=== PATIENT | male | born 1960 | race Caucasian/White ===

== ENCOUNTER 2017-08-02 13:46 | Emergency (ER) | payer BC, SELFPAY ==
[2017-08-02 13:47] VITALS: BP 162/79; PULSE 89; RESP 18; TEMP 36.9; O2SAT 95; BMI 35.1
--- NOTE | 2017-08-02 13:50 | XR_ITS ---
XR chest 2V Ordering Physician: Cale De La Torre MD Patient Age: 56 years: Male HISTORY: ITS.REASON: chest pain TECHNIQUE: PA and lateral chest. FINDINGS The lungs otherwise fairly clear with nothing definitely acute. No focal pneumonia. Diaphragms down to the anterior fifth rib bilateral. The heart, brennon and mediastinal structures satisfactory. Chest wall and T-spine satisfactory with no significant findings. No previous studies available for comparison. IMPRESSION: Lungs clear nothing definitely acute
[2017-08-02 14:21] LABS: Basophils % 0.3 % (0.1-2.0); Eosinophils # 0.4 K/mm3 (0.0-0.4); Eosinophils % 3.2 % (0.1-12.0); Hematocrit 46.7 % (42.0-52.0); Hemoglobin 15.3 g/dL (14.1-18.0); Lymphocytes # 3.5 K/mm3 (0.7-4.5); Lymphocytes % 29.8 K/mm3 (10-50); Mean Corpuscular HGB Conc 32.8 g/dL (31.8-35.4); Mean Corpuscular Hemoglobin 30.2 pg (27.0-31.2); Mean Corpuscular Volume 92.1 fl (80-94); Mean Platelet Volume 8.8 fl (7.4-10.4); Monocytes # 0.6 K/mm3 (0.1-1.0); Monocytes % 4.8 % (1.7-9.3); Neutrophils # 7.3 K/mm3 (1.8-7.8); Neutrophils % 61.9 % (37.0-80.0); Platelet Count 269 K/mm3 (142-424); Red Blood Count 5.07 M/mm3 (4.60-6.20); Red Cell Distribution Width 13.8 % (11.5-17.5); White Blood Count 11.8 K/mm3 (4.8-10.8)
[2017-08-02 14:46] LABS: Alanine Aminotransferase 117 U/L (12-78); Albumin/Globulin Ratio 1.3 (1.1-1.8); Alkaline Phosphatase 117 U/L (46-116); Anion Gap 11.1 mEq/L (5-15); Aspartate Amino Transferase 56 U/L (15-37); Bilirubin,Total 0.2 mg/dL (0.2-1.0); Blood Urea Nitrogen 17 mg/dL (7-18); CKMB Relative Index 0.7 U/L (0-4.0); Calcium 9.3 mg/dL (8.5-10.1); Carbon Dioxide 29 mmol/L (21.0-32.0); Chloride 104 mmol/L (98-107); Creatine Kinase 144 U/L (39-308); Creatinine Clearance Estimated 107 mL/min (0-300); Creatinine,Serum 1.03 mg/dL (0.70-1.30); Estimated Glomerular Filt Rate 74 ml/min (>60); GFR (African American) 90 ML/MIN (>60); Glucose 121 mg/dL (74-106); Potassium 4.1 mmoL/L (3.5-5.1); Sodium 140 mmol/L (136-145); Troponin I < 0.02 ng/ml (0.00-0.06)
[2017-08-02 15:53] VITALS: BP 161/98; PULSE 79; RESP 18; O2SAT 97
[2017-08-02 16:30] VITALS: BP 182/97; PULSE 82; RESP 18; O2SAT 97
[2017-08-02 16:38] LABS: CKMB Relative Index 0.6 U/L (0-4.0); Creatine Kinase 135 U/L (39-308); Creatine Kinase MB 0.8 mg/ml (0.0-3.6); Troponin I < 0.02 ng/ml (0.00-0.06)
--- NOTE | 2017-08-02 17:13 | HMH.EDCP ---
ED Disposition Clinical Impression: Atypical chest pain Disposition: Home, Self-Care Condition on Discharge: Good Instructions: DI for Atypical Chest Pain Additional Instructions: Please follow-up with Dr. Ame Veloz, within the next 2 days call for additional outpatient workup. Referrals: Ame Veloz [Referring] - Time of Disposition: 17:13 - Critical Care Critical Care Time: No Attestation: On 08/02/17, the high probability of a clinically significant, sudden or life threatening deterioration of the following system(s) required my full and direct attention, intervention and personal management. The time I documented below is in addition to time spent performing reported procedures but includes the following listed in this critical care notation. Medical Decision Making - Medical Records Medical records reviewed: Yes: I reviewed the patient's medical records. Vital Signs: 08/02/17 13:47 08/02/17 15:53 08/02/17 16:30 Temperature 98.5 F Temperature Source Oral Pulse Rate Pulse Rate [Right Brachial] 89 79 82 Respiratory Rate 18 18 18 Blood Pressure Blood Pressure [Right Arm] 162/79 161/98 182/97 Blood Pressure Mean [Right Arm] 106 119 125 Blood Pressure Source Blood Pressure Source [Right Arm] Automatic Cuff Automatic Cuff Automatic Cuff Blood Pressure Position Blood Pressure Position [Right Arm] Sitting Sitting Sitting 02 Sat by Pulse Oximetry 95 97 97 Oxygen Delivery Method Room Air Room Air Room Air 08/02/17 17:24 Temperature Temperature Source Pulse Rate 88 Pulse Rate [Right Brachial] Respiratory Rate 18 Blood Pressure 151/99 Blood Pressure [Right Arm] Blood Pressure Mean [Right Arm] Blood Pressure Source Automatic Cuff Blood Pressure Source [Right Arm] Blood Pressure Position Sitting Blood Pressure Position [Right Arm] 02 Sat by Pulse Oximetry Oxygen Delivery Method Room Air - Lab Data Lab results reviewed: Yes: I reviewed the patient's lab results. Lab Results 08/02/17 14:05: WBC 11.8 H, RBC 5.07, Hgb 15.3, Hct 46.7, MCV 92.1, MCH 30.2, MCHC 32.8, RDW 13.8, Plt Count 269, MPV 8.8, Neut % (Auto) 61.9, Lymph % (Auto) 29.8, [place] % (Auto) 4.8, Eos % (Auto) 3.2, Baso % (Auto) 0.3, Neut # (Auto) 7.3, Lymph # (Auto) 3.5, [place] # (Auto) 0.6, Eos # (Auto) 0.4, Baso # (Auto) 0.0 08/02/17 14:05: Sodium 140, Potassium 4.1, Chloride 104, Carbon Dioxide 29, Anion Gap 11.1, BUN 17, Creatinine 1.03, Estimated Creat Clear 107, Estimated GFR 74, Est GFR ( Amer) 90, Glucose 121 H, Calcium 9.3, Total Bilirubin 0.2, AST 56 H, ALT 117 H, Alkaline Phosphatase 117 H, Total Creatine Kinase 144, CK-MB (CK-2) 1.0, CK-MB (CK-2) Rel Index 0.7, Troponin I < 0.02, Total Protein 7.0, Albumin 4.0, Globulin 3.0, Albumin/Globulin Ratio 1.3 08/02/17 16:06: Total Creatine Kinase 135, CK-MB (CK-2) 0.8, CK-MB (CK-2) Rel Index 0.6, Troponin I < 0.02 Result diagrams: 08/02/17 14:05 08/02/17 14:05 Orders (Tests/Meds): ED MEDICATIONS Discontinued Medications Generic Name Dose Route Start Last Admin Trade Name Freq PRN Reason Stop Dose Admin Aspirin 324 mg 08/02/17 13:51 08/02/17 15:51 Aspirin 81mg Chewable Tablet PO 08/02/17 13:52 324 mg ONCE ONE Administration - Radiology Data #1 Image(s): Chest Image Reviewed: Yes I reviewed the patient's radiology results, Yes I reviewed the patient's radiology image, Yes I discussed the image results w/the radiologist Preliminary Findings: Normal/NAD - ECG Data Tracing #1 I reviewed this ECG and interpreted as documented below: no acute disease, no acute ischemia ECG normal with no acute: arrhythmias, ischemia, conduction abnormalities, chamber hypertrophy - Tung Inquiry Pt receiving controlled substance: No - Reevaluation(s) Time: 16:58 Reevaluation #1: in no acute distress, no recurrent symptoms, 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
[2017-08-02 17:24] VITALS: BP 151/99; PULSE 88; RESP 18; O2SAT 99
== END 2017-08-02 17:25 | disposition home or self-care (01) ==
PROVIDERS: Emergency Provider Emergency Medicine; Family Provider Physician Assistant; PCP Physician Assistant
DX: R07.89 Other chest pain (principal)
CPT/HCPCS: 36415; 71046; 80053; 82550; 82553; 84484; 85025; 93005; 93041; 99284

== ENCOUNTER 2020-04-04 07:00 | Outpatient (RCR) | payer OTHER, SELFPAY | END 2020-04-04 09:00 | disposition home or self-care (01) | LOC: PT.CARL 07:00 | PROVIDERS: Visit Provider Physician Assistant | DX: M25.511 Pain in right shoulder (principal); M25.611 Stiffness of right shoulder, not elsewhere classified | CPT/HCPCS: 97010; 97014; 97033; 97035; 97110; 97163; G0283 ==

== ENCOUNTER 2023-02-03 02:53 | Emergency (ER) | payer BC, SELFPAY ==
[2023-02-03 02:56] VITALS: BP 178/98; PULSE 89; RESP 18; TEMP 36.9; O2SAT 98; BMI 39.1
--- NOTE | 2023-02-03 03:06 | XR_ITS ---
PROCEDURE INFORMATION: Exam: XR Chest Exam date and time: 02/03/2023 3:34 AM Age: 62 years old Clinical indication: Other: Ruq pain TECHNIQUE: Imaging protocol: Radiologic exam of the chest. Views: 1 view. COMPARISON: CR CXR2V XR chest 2V 08/02/2017 2:04 PM FINDINGS: Lungs: Unremarkable. No consolidation. Pleural spaces: Unremarkable. No pleural effusion. No pneumothorax. Heart/Mediastinum: Unremarkable. No cardiomegaly. Bones/joints: Unremarkable. IMPRESSION: No acute findings.
--- NOTE | 2023-02-03 03:08 | HMH.EDGENADL ---
Discharge Plan Disposition Patient Disposition: Home, Self-Care Condition: Good Chief Complaint: Abdominal Pain Prescriptions Prescriptions: No Action lisinopril 40 mg tablet 40 mg PO DAILY Clinical Impressions Clinical Impression: Abdominal pain, RUQ, Hepatitis Instructions Patient Instructions: DI for Acute Abdominal Pain Discharge ED Provider: Kelechi Duffy General Adult HPI General Chief complaint: Abdominal Pain Stated complaint: pain in right side [id number] Time Seen by Provider: 02/03/23 03:01 Mode of Arrival: Ambulatory Source of Information: Patient Limitations: No Limitations History of Present Illness HPI narrative: This is a 62-year-old male with history of hypertension on lisinopril, GERD on PPI presenting with abdominal pain. Patient states that he has had abdominal pain on and off for the past 2 weeks or so. It has not gotten any better or any worse, he came to the ER at 3 AM on 02/03 for further evaluation. Patient states it is not currently hurting him. When it flares up, it is mild in intensity, does not radiate, right upper quadrant. Not associated with vomiting, diarrhea, yellowing of the skin or eyes, dark-colored urine, burning when he urinates, flank pain, nausea or vomiting. Has not had diarrhea or constipation. Patient denies any abdominal surgeries, drinking or smoking, or any other concerning history. Related Data Home Medications Medication Instructions Recorded Confirmed lisinopril 40 mg tablet 40 mg PO DAILY blood pressure 02/03/23 02/03/23 Allergies Allergy/AdvReac Type Severity Reaction Status Date / Time No Known Allergies Allergy Verified 08/02/17 13:46 [facility] Disclaimer: The information contained in this section may have been updated after the patient was seen, as this information can be updated by other users. Social History Smoking Status: Never smoker alcohol intake: never current occupational status: employed Travel in the last 8 weeks: None ROS Obtained: Yes All systems reviewed & no additional complaints except as documented Physical Exam General General appearance: alert and in no apparent distress Respiratory Respiratory exam: Present normal lung sounds bilaterally and respiratory distress Cardiovascular Cardiovascular exam: Present regular rate and normal rhythm Abdominal Exam Abdominal exam: Present soft; Absent distention, tenderness, guarding or rebound Back Exam Back exam: Present normal inspection; Absent CVA tenderness (R) or CVA tenderness (L) Neurological Exam Neurological exam: Present alert and oriented X3; Absent motor sensory deficit Psychiatric Psychiatric exam: Present normal affect and normal mood Medical Decision Making Medical Records Medical records reviewed: Yes I reviewed the patient's medical records. Tung Inquiry Pt receiving controlled substance: No Tung was queried for this patient: No Vital Signs: 02/03/23 02:56 02/03/23 04:00 Temperature 98.5 F Temperature Source Oral Pulse Rate 80 Pulse Rate [Left] 89 Respiratory Rate 18 18 Blood Pressure 144/92 H Blood Pressure [Right Arm] 178/98 H Blood Pressure Mean 109 Blood Pressure Mean [Right Arm] 124 02 Sat by Pulse Oximetry 98 97 Oxygen Delivery Method Room Air Lab Data Lab Results 02/03/23 03:03: Urine Color Yellow, Urine Appearance Clear, Urine pH 6.5, Ur Specific [place] 1.025, Urine Protein Negative, Urine Glucose (UA) Negative, Urine Ketones Negative, Urine Blood Negative, Urine Nitrate Negative, Urine Bilirubin Negative, Urine Urobilinogen 4.0, Ur Leukocyte Esterase Negative, Urine WBC Occasional, Urine Bacteria Trace, Urine Mucus Trace 02/03/23 03:18: WBC 11.1 H, RBC 4.95, Hgb 14.6, Hct 46.3, MCV 93.6, MCH 29.6, MCHC 31.6 L, RDW 15.0, Plt Count 155, MPV 10.2, Neut % (Auto) 59.2, Lymph % (Auto) 28.7, [place] % (Auto) 8.8, Eos % (Auto) 2.8, Baso % (Auto) 0.4, Neut # (Auto) 6.6, Lymph # (Auto) 3.2, [place] # (Auto) 1.0,
[2023-02-03 03:15] LABS: Appearance,Urine CLEAR (Clear); Bilirubin,Urine Negative (Negative); Blood, Urine Negative (Negative); Color,Urine YELLOW (Yellow); Glucose,Urine (UA) Negative (Negative); Ketones,Urine Negative (Negative); Leukocyte Esterase,Urine Negative (Negative); Microscopic, Urine URINE MICROSCOPIC (MICROSCOPIC); Nitrate,Urine Negative (Negative); PH,Urine 6.5 (5.0-8.5); Protein,Urine Negative (Negative); Specific Gravity, Urine 1.025 (1.005-1.030)
[2023-02-03 03:29] LABS: WBC,Urine Occasional #/hpf (0-3)
[2023-02-03 03:30] LABS: Bacteria,Urine Trace /lpf; Mucus,Urine Trace /lpf
[2023-02-03 04:00] VITALS: BP 144/92; PULSE 80; RESP 18; O2SAT 97
--- NOTE | 2023-02-03 04:02 | ECG_ITS ---
APPROVED REPORT Exam: Resting ECG HR:76 bpm ECG Measurements Heart Rate 76 AXES PA 149 P 40 QRSd 86 QRS 51 QT 365 T 18 QTc 395 Conclusion SINUS RHYTHM LOW QRS VOLTAGE IN PRECORDIAL LEADS [QRS DEFLECTION < 1.0 mV IN CHEST LEADS] BORDERLINE ECG UNCONFIRMED REPORT Electronically signed by : Everett Reid MD 02/03/2023 21:16:57
[2023-02-03 04:18] LABS: Basophils % 0.4 % (0.1-2.0); Eosinophils # 0.3 K/mm3 (0.0-0.4); Eosinophils % 2.8 % (0.1-12.0); Hematocrit 46.3 % (42.0-52.0); Hemoglobin 14.6 g/dL (14.1-18.0); Lymphocytes # 3.2 K/mm3 (0.7-4.5); Lymphocytes % 28.7 % (10-50); Mean Corpuscular HGB Conc 31.6 g/dL (31.8-35.4); Mean Corpuscular Hemoglobin 29.6 pg (27.0-31.2); Mean Corpuscular Volume 93.6 fl (80-94); Mean Platelet Volume 10.2 fl (7.4-10.4); Monocytes % 8.8 % (1.7-9.3); Neutrophils # 6.6 K/mm3 (1.8-7.8); Neutrophils % 59.2 % (37.0-80.0); Platelet Count 155 K/mm3 (142-424); Red Blood Count 4.95 M/mm3 (4.60-6.20); White Blood Count 11.1 K/mm3 (4.8-10.8)
[2023-02-03 04:27] LABS: Alanine Aminotransferase 109 U/L (12-78); Albumin Level 4.2 g/dl (3.5-5.0); Albumin/Globulin Ratio 1.4 (1.1-1.8); Alkaline Phosphatase 194 U/L (38-126); Aspartate Amino Transferase 114 U/L (17-59); Bilirubin,Total 0.4 mg/dl (0.2-1.3); Blood Urea Nitrogen 15 mg/dl (9-20); Calcium 9.1 mg/dl (8.4-10.2); Carbon Dioxide 27 mmol/L (22.0-30.0); Chloride 108 mmol/L (98-107); Creatinine Clearance Estimated 114 mL/min (50-200); Estimated Glomerular Filt Rate 98 ml/min (>60); GFR (African American) 118 ML/MIN (>60); Globulin 3.1 g/dL (1.3-3.2); Glucose 89 mg/dl (74-100); Lipase 96 U/L (23-300); Sodium 142 mmol/L (136-145); Total Protein,Serum 7.3 g/dl (6.3-8.2)
[2023-02-03 04:39] LABS: Troponin I < 0.01 ng/ml (0.00-0.034)
[2023-02-03 04:53] VITALS: BP 137/88; PULSE 82; RESP 18; TEMP 36.6
== END 2023-02-03 05:09 | disposition home or self-care (01) ==
PROVIDERS: Emergency Provider Emergency Medicine
DX: K75.9 Inflammatory liver disease, unspecified (principal); R10.11 Right upper quadrant pain; I10 Essential (primary) hypertension; K21.9 Gastro-esophageal reflux disease without esophagitis
CPT/HCPCS: 71045; 80053; 81001; 83690; 84484; 85025; 93005; 99285

== ENCOUNTER 2023-06-12 00:25 | Emergency (ER) | payer BC, SELFPAY ==
--- NOTE | 2023-06-12 00:28 | HMH.EDGENADL ---
Discharge Plan Disposition Patient Disposition: Home, Self-Care Prescriptions Prescriptions: New methocarbamol 500 mg tablet 500 mg PO Q6H PRN (Reason: pain) Qty: 30 0RF lidocaine 5 % adhesive patch,medicated 1 patch topical DAILY PRN (Reason: pain) Qty: 30 0RF Rx Instructions: leave on most painful area for up to 12 hrs No Action lisinopril 40 mg tablet 40 mg PO DAILY Activity Restrictions/Add. Instructions Additional Instructions/Restrictions: Please take Tylenol and ibuprofen as needed for pain. Please take Robaxin and use lidocaine patches as needed. Please follow-up with your primary care provider. Please return to the emergency department if develop any new or worsening symptoms or become concerned for your health. Clinical Impressions Clinical Impression: Strain of lumbar region Qualifiers: Encounter type: initial encounter Qualified Code(s): S39.012A - Strain of muscle, fascia and tendon of lower back, initial encounter Instructions Patient Instructions: DI for Low Back Pain Discharge ED Provider: Mitchell Cunningham General Adult HPI General Chief complaint: Back Pain/Injury Stated complaint: back pain Right lower side Time Seen by Provider: 06/12/23 00:28 History of Present Illness HPI narrative: 62-year-old male, reported history of hypertension presents with right-sided low back pain that he noticed when he woke up this morning. He reports that he thinks it is from a lumpy mattress . He reports no recent trauma or injury. Reports no recent fever or illness. Reports no history of cancer or other medical conditions. He reports no neurologic symptoms. Reports no history of stones or any urinary symptoms. Reports no abdominal pain or tenderness. He did not take any medications for pain today prior to arrival. Related Data Home Medications Medication Instructions Recorded Confirmed lisinopril 40 mg tablet 40 mg PO DAILY blood pressure 02/03/23 06/12/23 Previous Rx's Medication Instructions Recorded lidocaine 5 % topical patch 1 patch topical DAILY PRN pain #30 06/12/23 ea methocarbamol 500 mg tablet 500 mg PO Q6H PRN pain #30 tabs 06/12/23 Allergies Allergy/AdvReac Type Severity Reaction Status Date / Time No Known Allergies Allergy Verified 08/02/17 13:46 [facility] Disclaimer: The information contained in this section may have been updated after the patient was seen, as this information can be updated by other users. Social History (Updated 02/03/23 @ 04:52 by Kelechi Duffy MD) Smoking Status: Never smoker alcohol intake: never current occupational status: employed Travel in the last 8 weeks: None ROS Obtained: Yes All systems reviewed & no additional complaints except as documented Physical Exam General General appearance: alert and in no apparent distress Head Head exam: atraumatic and normocephalic Eye Eye exam: Present normal appearance, PERRL and EOMI ENT ENT exam: Present normal oropharynx and normal external ear exam Neck Neck exam: Present normal inspection and full ROM Chest Chest inspection: Present normal inspection and symmetric chest wall rise; Absent tenderness Respiratory Respiratory exam: Present normal lung sounds bilaterally; Absent respiratory distress Cardiovascular Cardiovascular exam: Present regular rate and normal rhythm Abdominal Exam Abdominal exam: Present soft; Absent distention, tenderness or guarding Extremities Exam Extremities exam: Present normal inspection; Absent edema or joint swelling Back Exam Back exam: Present normal inspection and tenderness (Mild right paraspinal lumbar tenderness. No midline spinal tenderness.); Absent CVA tenderness (R) or CVA tenderness (L) Neurological Exam Neurological exam: Present alert and oriented X3; Absent motor sensory deficit Psychiatric Psychiatric exam: Present normal affect and normal mood Skin Skin exam: Present warm, dry and normal color Lymphatic Ly
[2023-06-12 00:30] VITALS: BP 159/93; PULSE 96; RESP 20; TEMP 36.8; O2SAT 98; BMI 49.9
--- NOTE | 2023-06-12 00:31 | PC.NURSE ---
doctor in room at this time
[2023-06-12 00:51] LABS: Microscopic, Urine URINE MICROSCOPIC (MICROSCOPIC)
[2023-06-12 00:53] LABS: Appearance,Urine CLEAR (Clear); Bilirubin,Urine Negative (Negative); Blood, Urine Negative (Negative); Color,Urine YELLOW (Yellow); Glucose,Urine (UA) Negative (Negative); Ketones,Urine Negative (Negative); Leukocyte Esterase,Urine Negative (Negative); Nitrate,Urine Negative (Negative); Protein,Urine Negative (Negative)
[2023-06-12 01:00] VITALS: BP 147/88; PULSE 96; RESP 20; O2SAT 94
[2023-06-12 01:30] VITALS: BP 140/80; PULSE 95; RESP 18; O2SAT 95
[2023-06-12 01:58] VITALS: BP 140/80; PULSE 95; RESP 20; TEMP 37.1; O2SAT 95
== END 2023-06-12 02:06 | disposition home or self-care (01) ==
PROVIDERS: Emergency Provider Emergency Medicine
DX: S39.012A Strain of muscle, fascia and tendon of lower back, initial encounter (principal); I10 Essential (primary) hypertension; X58.XXXA Exposure to other specified factors, initial encounter
CPT/HCPCS: 81001; 99283

== ENCOUNTER 2024-09-21 09:51 | Outpatient (CLI) | payer BC, SELFPAY ==
[2024-09-21] MEDS: ALBUTEROL 0.083% 2.5 MG/3 ML NEB IH (10:35)
[2024-09-21 11:20] VITALS: PULSE 72; PULSE 74
== END 2024-09-21 23:59 | disposition home or self-care (01) ==
LOC: RT 09:55
PROVIDERS: Visit Provider Internal Medicine Pulmonary Disease
DX: R06.09 Other forms of dyspnea (principal)
CPT/HCPCS: 94060; 94618; 94640; 94726; 94729; J7613

== ENCOUNTER 2025-04-06 14:45 | Outpatient (CLI) | payer MEDICARE, SELFPAY ==
[2025-04-06] MEDS: ALBUTEROL 0.083% 2.5 MG/3 ML NEB IH (15:37)
--- NOTE | 2025-04-06 15:39 | PC.NURSE ---
PFT and 6 Minute Walk Test completed without incident. Albuterol 0.083% given via HHN per written protocol, Pt tolerated tx well.
== END 2025-04-06 23:59 | disposition home or self-care (01) ==
PROVIDERS: PCP Emergency Medicine; Visit Provider Internal Medicine Pulmonary Disease
DX: R06.09 Other forms of dyspnea (principal); R06.02 Shortness of breath
CPT/HCPCS: 94060; 94618; 94726; 94729